=== PATIENT | female | born 1940 ===

== ENCOUNTER 2025-01-07 10:37 | Outpatient (AMB) | payer MEDICARE, OTHER, SELFPAY ==
--- NOTE | 2025-01-07 10:50 | HO.SPINEOV ---
Intake Visit Reasons: low back pain Intake Note: Mrs. Don is here today c/o low back pain. CT Scan done @ [facility] [place] ([place]ought [place]). Manager Of Human Resources Required: No Allergies welbutrin Adverse Reaction (Mild, Uncoded 01/07/25 10:51) Rash Assessment & Plan Assessment & Plan (1) Sacroiliitis, not elsewhere classified: Code(s): M46.1 - Sacroiliitis, not elsewhere classified Category: Medical Plan: Dear colleague Thank you for referring Laure Don to the office today with a chief complaint of left-sided back pain. HPI: This 84-year-old female with a history of juvenile scoliosis, developed a progressive pain around the left SI joint since 2 years. She can finger point where the pain is. Injections give relief. She does not know which part of the spine was injected. She denies radiation down her legs although 1 time she had it going down to the left lower leg. Walking increases the symptoms. Sitting down or laying on her back improves the symptom. Anti-inflammatory drugs alleviate his symptoms most of the time . Medications: Thyroid and cholesterol medication Allergies: Wellbutrin Social history: . Physical Exam: Pleasant female. As pain of the left SI joint. Cross leg tests produces pain in the left SI joint. Straight leg raise produces pain in the left SI joint. 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 Impression/Plan: This patient is suffering from progressive left-sided back pain. Differential diagnosis sacroiliitis versus spinal stenosis. I favor the 1st diagnosis. I would like to know if this patient received the injections in the SI joint. We will request the medical records from [facility] and after review I will call the patient. Thank you for allowing me to participate in your patients care. total time spent was 40 minutes in counseling ,coordination of plan, personal review of imaging, surgical decision making and subsequent plan Rodrigue Sims MD, PhD [facility] Trained Neurosurgeon Director, [facility] Coding Level of Care Code New Pt Level 3 (71567) Diagnoses Sacroiliitis, not elsewhere classified M46.1
== END 2025-01-07 11:26 | disposition home or self-care (01) ==
LOC: HO.HNS 10:38
PROVIDERS: PCP Internal Medicine; Visit Provider Neurological Surgery
DX: M46.1 Sacroiliitis, not elsewhere classified (principal)
CPT/HCPCS: 99203

== ENCOUNTER → 2025-01-07 10:37 | Outpatient (BNVA) | payer MEDICARE, OTHER, SELFPAY | PROVIDERS: PCP Internal Medicine; Visit Provider Neurological Surgery | DX: M46.1 Sacroiliitis, not elsewhere classified (principal) | CPT/HCPCS: 99202 ==